=== PATIENT | male | born 2000 | race African-American/Black ===

== ENCOUNTER 2022-06-02 20:08 | Inpatient (IN) | payer OTHER ==
[~2022-06-02] VITALS: Ht 182.9 cm; Wt 121.7 kg
[2022-06-02 20:28] LABS: BASO % 0.5 % (0.0-1.0); EOS # 0.3 10^3/uL (0.0-0.5); HEMATOCRIT 44.3 % (42.0-52.0); HEMOGLOBIN 14.7 g/dl (13.5-17.5); LYMPH # 1.9 10^3/uL (1.5-5.0); LYMPH % 30.3 % (24.0-44.0); MEAN CORPUSCULAR HEMOGLOBIN 24.3 pg (27.0-33.0); MEAN CORPUSCULAR HGB CONC 33.2 g/dl (32.0-36.5); MEAN CORPUSCULAR VOLUME 73.1 fl (80.0-96.0); MONO # 0.9 10^3/uL (0.0-0.8); MONO % 13.8 % (2.0-8.0); NEUTROPHILS # 3.1 10^3/uL (1.5-8.5); NEUTROPHILS % 50.6 % (36.0-66.0); PLATELET COUNT, AUTOMATED 281 10^3/uL (150-450); RED BLOOD COUNT 6.06 10^6/uL (4.30-6.10); WHITE BLOOD COUNT 6.2 10^3/uL (4.0-10.0)
[2022-06-02 20:36] LABS: ABG BASE EXCESS 1.3 (-2.0-2.0); ABG HCO3 27.7 MEQ/L (22.0-26.0); ABG O2 SATURATION 48.9 % (95.0-99.0); ABG PARTIAL PRESSURE CO2 50.8 mmHg (35.0-45.0); ABG STANDARD HCO3 24.3 MEQ/L (22.0-26.0); ABG TOTAL CO2 29.3 MEQ/L (22.0-29.0); ABG pH (ARTERIAL) 7.355 UNITS (7.350-7.450)
[2022-06-02 20:41] LABS: ABG PARTIAL PRESSURE O2 26.3 mmHg (75.0-100.0)
[2022-06-02] MEDS ORDERED: ACETAMINOPHEN TAB 650MG DOSE (2X325MG) PO ONE (20:45)
[2022-06-02 21:00] LABS: BLOOD UREA NITROGEN 12 MG/DL (7-18); CALCIUM LEVEL 9.9 MG/DL (8.5-10.1); CARBON DIOXIDE LEVEL 30 MEQ/L (21-32); CHLORIDE LEVEL 104 MEQ/L (98-107); CREATININE FOR GFR 1.09 MG/DL (0.70-1.30); GLOMERULAR FILTRATION RATE > 60.0 (>60); GLUCOSE, FASTING 99 MG/DL (70-100); MAGNESIUM LEVEL 2.3 MG/DL (1.8-2.4); POTASSIUM SERUM 3.7 MEQ/L (3.5-5.1); SODIUM LEVEL 139 MEQ/L (136-145)
[2022-06-02 21:31] LABS: VENOUS BASE EXCESS 1.6 (-2.0-2.0); VENOUS HCO3 28.1 MEQ/L (23.0-27.0); VENOUS O2 SATURATION 84.2 % (60.0-80.0); VENOUS PARTIAL PRESSURE CO2 51.4 mmHg (38.0-50.0); VENOUS PARTIAL PRESSURE O2 51.5 mmHg (30.0-50.0); VENOUS PH 7.356 UNITS (7.330-7.430); VENOUS STANDARD HCO3 25.6 MEQ/L; VENOUS TOTAL CO2 29.7 MEQ/L (24.0-28.0)
[2022-06-02 21:37] LABS: CPK CREATINE PHOSPHOKINASE 3483 U/L (39-308)
[2022-06-02] MEDS ORDERED: NS 1,000 ML IV ONE (21:50)
[2022-06-02] MEDS ORDERED: HOME MED LIST COMPLETE! XX SCH (22:25)
[2022-06-02 23:13] LABS: CPK CREATINE PHOSPHOKINASE 2937 U/L (39-308)
[2022-06-02 23:32] LABS: RSV AMPLIFICATION NEGATIVE (NEGATIVE)
[2022-06-03] MEDS ORDERED: ACETAMINOPHEN 500 MG TAB PO PRN (00:55)
[2022-06-03] MEDS ORDERED: NS 1,000 ML IV SCH (00:55)
[2022-06-03 03:08] VITALS: BP 134/78
[2022-06-03 06:00] VITALS: BP 120/60
[2022-06-03 07:29] LABS: BLOOD UREA NITROGEN 10 MG/DL (7-18); CALCIUM LEVEL 8.9 MG/DL (8.5-10.1); CARBON DIOXIDE LEVEL 30 MEQ/L (21-32); CHLORIDE LEVEL 107 MEQ/L (98-107); CREATININE FOR GFR 0.95 MG/DL (0.70-1.30); GLOMERULAR FILTRATION RATE > 60.0 (>60); GLUCOSE, FASTING 120 MG/DL (70-100); POTASSIUM SERUM 3.9 MEQ/L (3.5-5.1); SODIUM LEVEL 140 MEQ/L (136-145)
[2022-06-03 07:45] LABS: APPEARANCE, URINE MANUAL CLEAR (CLEAR); COLOR, URINE MANUAL YELLOW (YELLOW)
[2022-06-03 07:46] LABS: PH,URINE MAN 5.5 UNITS (5.0 - 7.0); SPECIFIC GRAVITY,URINE MANUAL 1.025 (1.002-1.035)
[2022-06-03 07:47] LABS: BILIRUBIN, URINE MANUAL NEGATIVE (NEGATIVE); BLOOD URINE MANUAL NEGATIVE (NEGATIVE); GLUCOSE, URINE (UA) MANUAL NEGATIVE (NEGATIVE); KETONE, URINE MANUAL 1+ mg/dL (NEGATIVE); LEUKOCYTE ESTERASE, URINE MAN NEGATIVE (NEGATIVE); NITRITE, URINE MANUAL NEGATIVE (NEGATIVE); PROTEIN, URINE MANUAL NEGATIVE (NEGATIVE); UROBILINOGEN, URINE MANUAL 1 MG mg/dl (NORMAL)
== END 2022-06-03 12:29 | disposition home or self-care (01) | DRG 918 ==
LOC: M ED 20:08 → EDBD 20:08 → M ED INP 06-03 00:36 → M MSPAV 06-03 03:09
PROVIDERS: ADMIT Internal Medicine; ATTEND Internal Medicine
DX: T58.11XA Toxic effect of carbon monoxide from utility gas, accidental (unintentional), initial encounter (principal); R51.9 Headache, unspecified; R11.0 Nausea; R53.83 Other fatigue; R74.8 Abnormal levels of other serum enzymes; Z20.822 Contact with and (suspected) exposure to COVID-19